=== PATIENT | male | born 1985 | race Caucasian/White ===

== ENCOUNTER 2024-09-29 12:07 | Emergency (ER) | payer SELFPAY ==
[2024-09-29 12:11] VITALS: BP 174/93
[2024-09-29 12:27] VITALS: BMI 34.9
[2024-09-29] MEDS: TORADOL 15 MG IM (12:41)
[2024-09-29] MEDS: DELTASONE 40 MG PO (12:41)
--- NOTE | 2024-09-29 13:24 | ED.GENMED ---
History of Present Illness
General
Chief Complaint: Back Pain
Time Seen by Provider: 09/29/24 12:26
History of Present Illness
History of Present Illness:
39-year-old male without significant past medical history presenting for lower back pain. Patient reports symptoms started earlier today after he lifted a wheelchair out of a van. 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 Initially thought that his pain was
potentially sciatica, however has had persistent lower back pain. Denies radiation to his legs. Denies numbness or tingling to his legs. Denies bowel or bladder issues. Denies any recent fever or illness. He did not take any pain medication
prior to arrival. Does note history of disc herniation in the past. Denies additional acute medical complaints
Phy Exam
Physical Exam
Physical Exam:
General: Well-appearing, no clinical signs of dehydration, nontoxic and in no acute distress
HEENT: protecting airway
Neck: appears supple
CV: Normal heart rate
Resp: No accessory muscle use, no increased work of breathing
Abd: No distention
Extremities: No deformities, no swelling. No focal tenderness to the back. No step-offs. No overlying skin changes.
Neuro: alert, no focal neurologic deficit
: deferred
Rectal: deferred
Psych: Normal affect
Skin: Intact
Course
Orders/Labs/Results
Orders:
Orders
09/29/24 12:34
Ketorolac [Toradol] 15 mg IM NOW STA
Prednisone [Deltasone] 40 mg PO NOW STA
Lumbar Spine Complete, 4 View [CR Lumbar Spine Comp Min 4 Vw*] Urgent
Comment:
Reason For Exam: pain after lifting a wheelchair
Vital Signs
Initial and Last Documented VS:
Initial Vital Signs
Temp Pulse Resp BP Pulse Ox
98.5 F 69 16 174/93 97
09/29/24 12:11 09/29/24 12:11 09/29/24 12:11 09/29/24 12:11 09/29/24 12:11
Last Documented Vital Signs
Temp Pulse Resp BP Pulse Ox
98.5 F 69 16 174/93 97
09/29/24 12:11 09/29/24 12:11 09/29/24 12:11 09/29/24 12:11 09/29/24 13:27
MDM/Problems Addressed
MDM/Problems Addressed:
39-year-old male presenting for lower back pain after lifting a wheelchair. Vital signs on arrival are significant for mild hypertension.
On exam patient is resting comfortably, no acute distress or discomfort. No significant reproducible tenderness. Symptoms appear most consistent with musculoskeletal etiology. Do not suspect any concerning etiology to patient's presenting
symptoms. Do not suspect any spinal fracture in the absence of any direct trauma, and no midline spinal tenderness. No fever, systemic symptoms, or midline tenderness, without concern for spinal abscess or infection. No red flag such as bowel or
bladder incontinence, focal weakness, or any sensory deficits on exam, without present concern for spinal compression. X-ray obtained, no fracture or malalignment. Patient administered Toradol for pain as well as a steroid. Feel stable for
discharge with continued outpatient supportive therapy. Will provide prescriptions. Strict return precautions communicated to patient verbalized understanding
*Pulse Oximetry
SaO2: 97
Oxygen Mode of Delivery: Room air
Patient hypoxic: no
*Critical Care Note
Total Time (30-74mins, 75-104mins- exclusive of procedures): Not Applicable
ED Attending Note
-
Portions of this chart may have been created with voice recognition software.� Occasional wrong word or��sound alike� substitutions may have occurred due to the inherent limitations of voice recognition software.
Discharge Plan
Departure
Patient Disposition: Home (Routine Discharge)
Date of Disposition: 09/29/24
Time of Disposition: 13:39
Patient with high blood pressure during this ER visit?: Yes
Condition: Good
Discharge Problem:
Back pain of thoracolumbar region
Instructions: Low Back Pain (DC)
Prescriptions:
New
ibuprofen 600 mg tablet
600 mg PO Q8H PRN (Reason: Pain) Qty: 20 0RF
prednisone 20 mg tablet
40 mg PO DAILY 5 Days Qty: 10 0RF
oxycodone-acetaminophen [Percocet] 5-325 mg tablet
1 tab PO Q8H PRN (Reason: Pain) Qty: 7 0RF
Referrals:
Naldo Hawkins DO [Family Provider, Family Practice]
Stand Alone Forms: Return to Work
Activity Restrictions/Additional Instructions:
You were seen in the emergency department for low back pain
You were found to have a normal x-ray of your back. You were steroid. We also recommend that you take ibuprofen for the pain, which is also prescribed.
Please follow-up closely with your primary care physician.
Return to the emergency department for any worsening of your symptoms, or any development of chest pain, difficulty breathing, abdominal pain with persistent vomiting and inability to tolerate food or liquid by mouth (concern for dehydration),
weakness, headache or confusion, fever greater than 100.4, or any additional symptoms that are concerning to you.
Thank you for choosing [facility].
Interventions
Interventions:
*Risk Screen - Suicide Last Done: 09/29/24 12:11
*General Assessment Last Done: 09/29/24 12:11
*Neglect/Abuse Screening Last Done: 09/29/24 12:11
*ED- Fall Risk Assessment Last Done: 09/29/24 12:11
*ED COVID-19 Vaccine History Last Done: 09/29/24 12:11
ED-Musculoskeletal Assessment Last Done: 09/29/24 12:27
Discharge Date and Time
Print Language: IVORIAN
== END 2024-09-29 13:58 | disposition home or self-care (01) ==
LOC: EMR 12:07
PROVIDERS: EMERGENCY PHYSICIAN Student in an Organized Health Care Education/Training Program; FAMILY PHYSICIAN Family Medicine
DX: M54.50 Low back pain, unspecified (principal)
CPT/HCPCS: 99283; 96372; 72110